=== PATIENT | male | born 1985 | race Caucasian/White ===

== ENCOUNTER 2025-02-22 10:54 | Emergency (ER) | payer BC, SELFPAY ==
[2025-02-22 11:15] VITALS: BMI 29.8
--- NOTE | 2025-02-22 11:48 | ED.SKININJ ---
Addendum entered and electronically signed by Narciso James DO 02/22/25 12:35:
Procedure note
1.5 cm laceration left distal thumb palmar surface
Digital block
Wound copiously irrigated
Saline Betadine
Number four 4-0 nylon sutures placed
Original Note:
HPI-Injury
General
Chief Complaint: Skin Surface Trauma
Source: patient and spouse
Exam Limitations: none
Time Seen by Provider: 02/22/25 11:22
History of Present Illness-Injury
Is this injury a work related problem?: No
Is pt an associate of [facility]?: No
Initial Injury comments:
39-year-old male zvygh-[id number]-[id number] circular saw to his left thumb just prior to arrival unsure of his last tetanus shot,
Past History
Past History
ED Past Medical History: None
ED Past Surgical History: None
Social History
Tobacco: Non-smoker
Alcohol: None
Drug: None
Personal:
Living: with family
Employment: Employed
Review of Systems
Review of Systems
All Other Systems: Not applicable
Musculoskeletal: Reports edema
Skin: Reports no symptoms
Neurological: Reports no symptoms
Phy Exam
Physical Exam
Physical Exam:
Physical Exam
General: no apparent distress, not acutely ill
Lungs: no acute respiratory distress.
Neuro: alert and oriented. no focal neurological deficits
Skin: no rash
Psychiatric: well kept. interactive and cooperative
Extremities: Left thumb 1 cm macerated laceration on the pulp space not involving the nail does not appear to involve the IP joint
Course
Orders/Labs/Results
Orders:
Orders
02/22/25 11:13
CR Finger(s)/thumb Min 2 Vw Lt Urgent
Comment: cut left thumb on table saw
Reason For Exam: injury
Indicate Which Finger:: Thumb
02/22/25 11:46
Cephalexin Monohydrate [Keflex] 500 mg PO NOW STA
Ibuprofen [Motrin] 600 mg PO NOW STA
Tetanus/Diphth/Acelpertussis [Adacel] 0.5 ml IM .ONCE ONE
Vital Signs
Initial and Last Documented VS:
Initial Vital Signs
Temp
98.5 F
02/22/25 10:58
Last Documented Vital Signs
Temp Pulse Ox
98.5 F 99
02/22/25 10:58 02/22/25 11:50
Procedures
Digital Block
Location of injection for digital block: base of digit
Indiction for Digital Block: pain relief
Type of anesthesia: Marcaine
Complications: none- good anesthesia
MDM/Problems Addressed
Differential Diagnosis Includes:
Fracture laceration nailbed injury tendon injury
MDM/Problems Addressed:
Saw versus hand
*Radiology
Radiology exam reviewed: preliminary read by ED provider
*Pulse Oximetry
SaO2: 99
Oxygen Mode of Delivery: Room air
Patient hypoxic: no
*Critical Care Note
Total Time (30-74mins, 75-104mins- exclusive of procedures): Not Applicable
Update Note
Update Note:
Update, x-ray noted looks like a fracture, will irrigate copiously after digital block started antibiotics will try to arrange hand surgery follow-up
Wound closed, referred to see Dr. Britton
ED Attending Note
-
Portions of this chart may have been created with voice recognition software.� Occasional wrong word or��sound alike� substitutions may have occurred due to the inherent limitations of voice recognition software.
Discharge Plan
Departure
Patient Disposition: Home (Routine Discharge)
Date of Disposition: 02/22/25
Time of Disposition: 12:24
Patient with high blood pressure during this ER visit?: No
Condition: Good
Discharge Problem:
Injury of finger
Instructions: Wound Care (DC)
Prescriptions:
New
ibuprofen 600 mg tablet
600 mg PO Q6H PRN (Reason: Pain) Qty: 20 0RF
oxycodone-acetaminophen [Percocet] 5-325 mg tablet
1 tab PO Q6HPRN PRN (Reason: pain) Qty: 14 0RF
cephalexin 500 mg capsule
500 mg PO Q8H 7 Days Qty: 21 0RF
Referrals:
Rich Riggs MD [Active, Orthopedics] - Next open appointment
Referral Note: you can follow-up today or tomorrow with Dr. Britton
Interventions
Interventions:
*Risk Screen - Suicide Last Done: 02/22/25 10:58
*General Assessment Last Done: 02/22/25 11:15
*Neglect/Abuse Screening Last Done: 02/22/25 10:58
*ED- Fall Risk Assessment Last Done: 02/22/25 11:15
*ED COVID-19 Vaccine History Last Done: 02/22/25 10:58
ED-Skin Assessment Last Done: 02/22/25 11:15
Discharge Date and Time
Print Language: SOMALI
[2025-02-22] MEDS: KEFLEX 500 MG PO (12:19)
[2025-02-22] MEDS: MOTRIN 600 MG PO (12:19)
[2025-02-22] MEDS: ADACEL 0.5 ML IM (12:20)
[2025-02-22 12:26] VITALS: BP 110/76
--- NOTE | 2025-02-22 12:30 | EDRN ---
Reviewed discharge instructions with patient. Verbalized understanding. Ambulated with steady gait to the lobby.
[2025-02-22 12:35] VITALS: BP 114/76
== END 2025-02-22 12:35 | disposition home or self-care (01) ==
LOC: EMR 10:54
PROVIDERS: EMERGENCY PHYSICIAN Emergency Medicine
DX: S62.522A Displaced fracture of distal phalanx of left thumb, initial encounter for closed fracture (principal); S61.012A Laceration without foreign body of left thumb without damage to nail, initial encounter; W31.2XXA Contact with powered woodworking and forming machines, initial encounter; Z23 Encounter for immunization
CPT/HCPCS: 99283; 12001; 90471; 73140; 90715